=== PATIENT | female | born 2000 | race Caucasian/White ===

== ENCOUNTER 2023-06-18 16:05 | Emergency (ER) | payer BC, SELFPAY ==
[2023-06-18] VITALS (12 sets, daily range): BP systolic 122–155; BP diastolic 64–98; PULSE 108–145; RESP 16; TEMP 36.8; O2SAT 97–100; BMI 33.8
--- NOTE | 2023-06-18 16:40 | ED.ARRPALP ---
HPI - Arrhythmia/Palpitations General Date Seen: 06/18/23 Chief Complaint: Arrhythmia/Palpitations Stated Complaint: Heart issues-pots, arrythmia, faint-loss of con Time Seen by Provider: 06/18/23 16:08 Source: patient Mode of arrival: ambulatory Limitations: no limitations History of Present Illness HPI narrative: Patient is a 23-year-old female with a history of POTS syndrome presenting to the emergency department for tachycardia and episodes syncope. She states today her heart rate has been elevated all day and she had an episode syncope. She states her or lap water showing heart rate was in the 140s and then when she passed out went down to the 40s and then back up to the 160s. She is not complaining about any headache or neck pain at this time. She does states she feels lightheaded and dizzy still. States he does have issues with vertigo since she has been a child and has dealt with this for a long time. The dizziness isn't acutely worse than normal episodes she will have. She does state she recently was started on azithromycin a month ago for a chronic rash on her chest by a real estate utilization officer. She thinks that might be causing some interactions. She is currently wearing a 14 day heart monitor given to her by her engineering writer in [place], [place]. States when she 1st passed out she felt short of breath after she woke up but right nose not feeling very short of breath. Denies chest pain. She did take her inhaler today also. Her heart rate is usually around 100 she states. Denies fevers, chills, abdominal pain, vision changes, weakness, numbness, diarrhea, constipation. Does not think she is given the much more active today compared to other days. Related Data Home Medications Medication Instructions Recorded Confirmed cetirizine 10 mg tablet (24Hour 10 mg PO DAILY PRN 06/18/23 06/18/23 Allergy) dextroamphetamine-amphetamine 20 20 mg PO BID 06/18/23 06/18/23 mg tablet (Adderall) duloxetine 60 mg capsule,delayed 60 mg PO DAILY 06/18/23 06/18/23 release (Cymbalta) etonogestrel 68 mg subdermal subdermal 06/18/23 implant (Nexplanon) omeprazole 20 mg capsule,delayed 20 mg PO DAILY 06/18/23 06/18/23 release valacyclovir 500 mg tablet 500 mg PO DAILY 06/18/23 06/18/23 Previous Rx's Medication Instructions Recorded meclizine 25 mg tablet 25 mg PO QID PRN dizziness #20 tabs 06/18/23 Allergies Allergy/AdvReac Type Severity Reaction Status Date / Time amoxicillin Allergy Unknown Hives Verified 06/18/23 16:14 sumatriptan Allergy Unknown Verified 06/18/23 16:14 codeine AdvReac Unknown Verified 06/18/23 16:14 Review of Systems Status of ROS: Reports: 10 or more systems reviewed and unremarkable except as noted in History and below [facility] Social History Smoking Status: Unknown if ever smoked Exam Narrative: Exam Narrative: Const: Well-nourished, Well-developed, in mild distress Eyes: PERRL, no conjunctival injection, and symmetrical lids HENT: Atraumatic external nose and ears. Moist mucous membranes. Neck: Symmetric, trachea midline, No thyromegaly. CVS: Tachycardia, No murmurs or gallops. Peripheral pulses 2+ and equal in all extremities RESP: Unlabored respiratory effort. Clear to auscultation bilaterally. GI: Nontender/Nondistended, No rebound or guarding. MSK:Extremities w/o deformity, Normal Active ROM Skin: Warm, Dry. No rashes or lesions. Neuro: Normal Muscle tone, No focal neurological deficits. Psych: Awake, Alert, & Oriented x3. Appropriate mood and affect. Const: Vital Signs, click to edit/add: Vital Signs - 24 hr 06/18/23 16:19 06/18/23 16:31 06/18/23 16:32 Temperature 98.3 F Pulse Rate 139 H 134 H Pulse Rate [Pulse Oximeter] 145 H Respiratory Rate 16 Blood Pressure 123/90 H Blood Pressure [Ri ght Upper Arm] 127/81 Pulse Oximetry 100 99 98 Oxygen Delivery Me thod Room Air Room Air 06/18/23 16:49 06/18/23 17:00 06/18/23 17:01 Temperature Pulse Rate 129 H 131 H Pulse Rate [Pulse Oximeter] Respiratory Rate Blood Pressure 122/64 Blood Pressure [Ri ght Upper Arm] Pulse Oximetry 100 98 97 Oxygen Delivery Me thod 06/18/23 17:33 06/18/23 17:34 06/18/23 18:02 Temperature Pulse Rate 121 H 121 H 115 H Pulse Rate [Pulse Oximeter] Respiratory Rate Blood Pressure 155/97 H 141/80 H Blood Pressure [Ri ght Upper Arm] Pulse Oximetry 98 99 99 Oxygen Delivery Me thod 06/18/23 18:03 Temperature Pulse Rate 113 H Pulse Rate [Pulse Oximeter] Respiratory Rate Blood Pressure Blood Pressure [Ri ght Upper Arm] Pulse Oximetry 99 Oxygen Delivery Me thod Course Vital Signs Vital signs: Initial Vital Signs Temperature 98.3 F 06/18/23 16:19 Temperature Source Temporal Artery Scan 06/18/23 16:19 Pulse Rate 145 H 06/18/23 16:19 Pulse Rhythm Regular 06/18/23 16:19 Respiratory Rate 16 06/18/23 16:19 Blood Pressure 127/81 06/18/23 16:19 Blood Pressure Mean 96 06/18/23 16:19 Blood Pressure Position Sitting 06/18/23 16:19 Pulse Oximetry 100 06/18/23 16:19 Oxygen Delivery Method Room Air 06/18/23 16:19 Vital Signs Temperature 98.3 F 06/18/23 16:19 Pulse Rate 145 H 06/18/23 16:19 Respiratory Rate 16 06/18/23 16:19 Blood Pressure 127/81 06/18/23 16:19 Pulse Oximetry 100 06/18/23 16:19 Oxygen Delivery Method Room Air 06/18/23 16:19 Temperature 98.3 F 06/18/23 16:19 Pulse Rate 113 H 06/18/23 18:03 Respiratory Rate 16 06/18/23 16:19 Blood Pressure 141/80 H 06/18/23 18:02 Pulse Oximetry 99 06/18/23 18:03 Oxygen Delivery Method Room Air 06/18/23 16:31 Medications Administered Medications: Generic Name Dose Route Start Last Admin Trade Name Freq PRN Reason Stop Dose Admin Lactated Ringer's 1,000 mls @ 1,000 mls/hr 06/18/23 17:50 06/18/23 17:54 Lactated Ringers 1000 Ml IV 06/18/23 18:49 1,000 mls/hr .Q1H ONE Administration Discontinued Medications Generic Name Dose Route Start Last Admin Trade Name Freq PRN Reason Stop Dose Admin Lactated Ringer's 1,000 mls @ 1,000 mls/hr 06/18/23 16:39 06/18/23 17:54 Lactated Ringers 1000 Ml IV 06/18/23 17:38 Infused .Q1H ONE Infusion Meclizine HCl 25 mg 06/18/23 16:39 06/18/23 16:56 Meclizine Hcl 25 Mg Tablet PO 06/18/23 16:40 25 mg ONCE ONE Administration MDM - Arrhythmia/Palpitations MDM Narrative Medical decision making narrative: Patient is is a 23-year-old female history of POTS presenting to emergency department for tachycardia, syncope, dizziness. The dizziness is a chronic issue for her and she has been doing physical therapy for vertigo. Meclizine will be given dizzy to see if it helped her symptoms. Redness she is tachycardic in the 140s. She does have POTS and has had issues with tachycardia in the past. Currently wearing a heart monitor. We will try some fluids to see if part of her issue was dehydration. They were concerned that her heart rate dropped down to the 40s after she passed out for a short amount of time but this seems non concerning considering it sounds like she had vasovagal syncope. We will order chest x-ray, D-dimer, urinalysis, urine , BMP, CBC, COVID chest flu/RSV, troponin, magnesium Her dizziness did improve after the meclizine. Chest x-ray reviewed by myself and the radiologist showed no concerning findings. Lab work all returned showing no concerning findings. EKG showed sinus tachycardia. Patient was given a L fluid in her heart rate came down to the 120s. After a 2nd L of fluid her heart rate came down to 105. She says her heart rate is usually around 100. Considering her heart rate is almost back to her baseline and she is feeling much better at this time I believe this is all related to her vertigo and her POTS syndrome as it can be related to decreased blood volume. She is agreeable with his plan. She will follow-up with her engineering writer. Lab Data Labs: Lab Results 06/18/23 06/18/23 Range/Units 16:33 16:45 WBC 9.06 (4.50-11.00) K/uL RBC 5.08 (4.00-5.20) m/uL Hgb 14.5 (12.0-16.0) gm/dL Hct 42.8 (33.0-51.0) % MCV 84 (80-100) fL MCH 29 (26-34) pg MCHC 34 (32-36) gm/dL RDW Coeff of Bernard 12.1 (11.5-15.5) % Plt Count 394 (140-440) K/uL Neut % (Auto) 71.6 (42.0-72.0) % Lymph % (Auto) 20.3 (20-44) % Owen % (Auto) 6.1 (0.0-11.0) % Eos % (Auto) 0.9 (0.0-7.0) % Baso % (Auto) 0.4 (0.0-3.0) % Neut # (Auto) 6.49 (1.7-7.0) K/uL Lymph # (Auto) 1.84 (0.90-2.90) K/uL Owen # (Auto) 0.60 (0.00-0.90) K/UL Eos # (Auto) 0.08 (0.00-0.50) K/uL Baso # (Auto) 0.04 (0.00-0.30) K/uL Abs Immat Gran (auto) 0.06 (0.00-0.30) K/uL Imm/Tot Granulo (auto) 0.7 % D-Dimer Quant (PE/DVT) 0.29 (0.00-0.50) ug/ml Sodium 138 (135-149) mmol/L Potassium 3.6 (3.6-5.1) mmol/L Chloride 108 (96-114) mmol/L Carbon Dioxide 18 L (20-32) mmol/L Anion Gap 12 (7-15) mEq/L BUN 8 (5-24) mg/dL Creatinine 0.5 (0.5-1.5) mg/dL Estimated Creat Clear 140.77 Estimated GFR 137 ml/min Glucose 157 H (60-115) mg/dL Calcium 9.3 (8.4-10.6) mg/dL Magnesium 2.0 (1.5-2.6) mg/dL Urine Color Yellow (Yellow) Urine Appearance Clear (Clear) Urine pH 6.5 (5.0-8.5) Ur Specific [place] 1.010 (1.000-1.030) Urine Protein Negative (Negative) Urine Glucose (UA) Negative (Negative) Urine Ketones Negative (Negative) Urine Blood Negative (Negative) Urine Nitrite Negative (Negative) Urine Bilirubin Negative (Negative) Urine Urobilinogen 0.2 (0.2-1.0) Ur Leukocyte Esterase Negative (Negative) Urine RBC 0-2 (0-2) Urine WBC 0-2 (0-5) Ur Squamous Epith Cells Few (None-Few) Urine Bacteria Few A (None) Urine HCG, Qual Negative (Negative) SARS-CoV-2 (PCR) Negative SARS-CoV-2 (Negative) Influenza Type A (PCR) Negative PCR FLU A (Negative) Influenza Type B (PCR) Negative PCR FLU B (Negative) RSV (PCR) Negative PCR RSV (Negative) POC Troponin I 0.00 L (0.01-0.04) ng/ml Imaging Data Chest x-ray: Radiologist's impression: No focal pulmonary opacities. No pneumothorax. Dictated by Adi Becerril MD @ 06/18/2023 6:03:37 PM ECG Data Attestation: I personally reviewed and interpreted this ECG as follows: Prior ECG tracings: not available for review Interpretation: Sinus tachycardia with a rate of 140 beats per minute, normal intervals, normal axis, no ST or T-wave abnormalities. Discharge Plan Discharge Clinical Impression: Postural orthostatic tachycardia syndrome [POTS] Patient Disposition: Home, Self-Care Condition: Improved Instructions: POTS (Postural Orthostatic Tachycardia Syndrome) (ED) Additional Instructions: Your symptoms all seem to be related to POTS. I recommend you stay well hydrated and have a close follow-up with a engineering writer in [place]. Return for new or worsening symptoms. Use the meclizine as needed for your dizziness. Prescriptions: New meclizine 25 mg tablet 25 mg PO QID PRN (Reason: dizziness) Qty: 20 0RF No Action duloxetine [Cymbalta] 60 mg capsule,delayed release(DR/EC) 60 mg PO DAILY dextroamphetamine-amphetamine [Adderall] 20 mg tablet 20 mg PO BID Rx Instructions: administer doses at least 4-6 hours apart valacyclovir 500 mg tablet 500 mg PO DAILY cetirizine [24Hour Allergy] 10 mg tablet 10 mg PO DAILY PRN omeprazole 20 mg capsule,delayed release(DR/EC) 20 mg PO DAILY Nexplanon 68 mg implant subdermal Follow Up/Referrals: Provider,Not a Local [Primary Care Provider] - Stand Alone Forms: [employer] Info Instructions
[2023-06-18] MEDS: LACTATED RINGERS 1000 ML 1,000 ML IV ×2 (16:56→17:54)
[2023-06-18] MEDS: MECLIZINE HCL 25 MG TABLET PO (16:56)
[2023-06-18 17:02] LABS: Basophils Absolute Auto 0.04 K/uL (0.00-0.30); Basophils Percent Auto 0.4 % (0.0-3.0); Eosinophils Absolute Auto 0.08 K/uL (0.00-0.50); Eosinophils Percent Auto 0.9 % (0.0-7.0); Hematocrit 42.8 % (33.0-51.0); Hemoglobin* 14.5 gm/dL (12.0-16.0); Immature Granulocytes Abs Auto 0.06 K/uL (0.00-0.30); Immature Granulocytes Pct Auto 0.7 %; Lymphocytes Absolute Auto 1.84 K/uL (0.90-2.90); Lymphocytes Percent Auto 20.3 % (20-44); Mean Corpuscular HGB Conc 34 gm/dL (32-36); Mean Corpuscular Hemoglobin 29 pg (26-34); Mean Corpuscular Volume 84 fL (80-100); Monocytes Percent Auto 6.1 % (0.0-11.0); Neutrophils Absolute Auto 6.49 K/uL (1.7-7.0); Neutrophils Percent Auto 71.6 % (42.0-72.0); Platelet Count* 394 K/uL (140-440); RDW Coefficient of Variation % 12.1 % (11.5-15.5); Red Blood Count 5.08 m/uL (4.00-5.20); White Blood Count* 9.06 K/uL (4.50-11.00)
[2023-06-18 17:03] LABS: Appearance Urine Clear (Clear); Bilirubin Urine Negative (Negative); Blood Urine Negative (Negative); Color Urine Yellow (Yellow); Glucose Urine Negative (Negative); Ketones Urine Negative (Negative); Leukocyte Esterase Urine Negative (Negative); Nitrite Urine Negative (Negative); Protein Urine Negative (Negative); Urobilinogen Urine 0.2 (0.2-1.0); pH Urine 6.5 (5.0-8.5)
[2023-06-18 17:03] LABS: Slide Review Reflex No
[2023-06-18 17:08] LABS: Chloride* 108 mmol/L (96-114); Potassium* 3.6 mmol/L (3.6-5.1); Sodium* 138 mmol/L (135-149)
[2023-06-18 17:11] LABS: Anion Gap 12 mEq/L (7-15); Blood Urea Nitrogen* 8 mg/dL (5-24); Calcium* 9.3 mg/dL (8.4-10.6); Carbon Dioxide* 18 mmol/L (20-32); Creatinine* 0.5 mg/dL (0.5-1.5); Est. Creatinine Clearance* 140.77; Estimated Glomerular Filt Rate 137 ml/min; Glucose* 157 mg/dL (60-115)
[2023-06-18 17:14] LABS: D Dimer Quantitative* 0.29 ug/ml (0.00-0.50)
[2023-06-18 17:16] LABS: Bacteria Urine Few; RBC Urine 0-2 (0-2); Squamous Epithelial Cell Urine Few (None-Few); WBC Urine 0-2 (0-5)
--- NOTE | 2023-06-18 17:17 | CRLHL7_ITS ---
For Patients: As a result of the Cures Act, medical imaging exams and procedure reports are released immediately into your electronic medical record. You may view this report before your referring provider. If you have questions, please contact your health care provider. INDICATION: Palpitations. FINDINGS: PA and lateral chest x-rays show a normal cardiac silhouette. The lungs show no focal pulmonary opacities. Sharp pleural margins. No pneumothorax. IMPRESSION: No focal pulmonary opacities. No pneumothorax. Dictated by Adi Becerril MD @ 06/18/2023 6:03:37 PM Dictated by: Adi Becerril MD @ 06/18/2023 18:03:44 (Electronically Signed)
[2023-06-18 17:25] LABS: Ur HCG Qualitative* Negative (Negative)
[2023-06-18 17:29] LABS: PCR FLU A Negative PCR FLU A (Negative); PCR FLU B Negative PCR FLU B (Negative); PCR RSV Negative PCR RSV (Negative); SARS PCR* Negative SARS-CoV-2 (Negative)
== END 2023-06-18 18:51 | disposition home or self-care (01) ==
PROVIDERS: Emergency Provider Student in an Organized Health Care Education/Training Program
DX: G90.A Postural orthostatic tachycardia syndrome [POTS] (principal)
CPT/HCPCS: 36415; 71046; 80048; 81001; 81025; 83735; 84484; 85025; 85379; 87086; 87631; 94761; 96360; 99283; 99284; A9270; J7120